=== PATIENT | female | born 2000 | race Caucasian/White ===

== ENCOUNTER 2018-06-17 12:31 | Emergency (ER) | payer MEDICAID, OTHER ==
--- NOTE | 2018-06-17 13:30 | Emergency Department Report ---
Blank Doc - Documentation Documentation: 17 yo female presents with left flank pain x 2 weeks with vomitting and diarrhea and urinary freq LMP 06/17/18 ua/upt labs reevaluate
[2018-06-17 14:02] LABS: Hematocrit 32.3 % (30.3-42.9); Hemoglobin 11.2 gm/dl (10.1-14.3); Mean Corpuscular HGB Conc 35 % (30-34); Mean Corpuscular Volume 87 fl (79-97); Platelet Count 398 K/mm3 (140-440); Red Blood Count 3.72 M/mm3 (3.65-5.03); Red Cell Distribution Width 14.2 % (13.2-15.2)
[2018-06-17 14:12] LABS: BUN/Creatinine Ratio 15; Blood Urea Nitrogen 12 mg/dL (7-17); Calcium 9.1 mg/dL (8.4-10.2); Hemolysis Index 9
[2018-06-17 14:26] LABS: Bilirubin,Urine NEG (Negative); Blood,Urine LG (Negative); Color,Urine Yellow (Yellow); Mucus,Urine FEW /HPF; Urobilinogen,Urine < 2.0 mg/dL (<2.0)
[2018-06-17 14:30] LABS: HCG Qualitative,Urine Negative (Negative)
[2018-06-17 14:38] LABS: Basophils % (Manual) 0 % (0.0-1.8); Eosinophils % (Manual) 0 % (0.0-4.3); Total Cells Counted 100
[2018-06-17 14:40] LABS: Anisocytosis 1+; Platelet Estimate Consistent w Auto
--- NOTE | 2018-06-17 15:10 | XRay Report ---
ROUTINE CHEST, TWO VIEWS: HISTORY: fever. The trachea, heart, mediastinal contour, lung alberts and bony thorax are unremarkable. IMPRESSION: Unremarkable chest x-ray.
[2018-06-17] MEDS ORDERED: NACL 0.9% 1000 ML IV ONE (16:41)
[2018-06-17] MEDS ORDERED: ZOSYN/NS 4.5GM/100ML 4.5 GM/100 ML VIAL IV ONE (16:41)
[2018-06-17] MEDS ORDERED: MAXIPIME/NS 1 GM/100 ML 1 GM/100 ML BAG IV ONE (16:47)
--- NOTE | 2018-06-17 16:51 | Emergency Department Report ---
ED Back Pain/Injury HPI - General Chief Complaint: Abdominal Pain Stated Complaint: STOMACH PAIN Time Seen by Provider: 06/17/18 13:27 Source: patient Limitations: No Limitations - History of Present Illness Initial Comments: 17-year-old female presents to ED with report of left flank pain 2 weeks. I reports associated fever, nausea, vomiting, diarrhea, urinary frequency. Cory abdullahi reports she is allergic to Tylenol and Aleve, reports facial swelling and throat swelling. Patient says she does not want anything for pain at this time. MD Complaint: back pain -: week(s) (2) Similar Symptoms Previously: No Radiation: none Severity: moderate Quality: sharp Consistency: intermittent Improves With: immobilization Worsens With: movement Context: unknown Associated Symptoms: fever/chills, nausea/vomiting, other (reports urinary symptoms). denies: abdominal pain - Related Data Previous Rx's Medication Instructions Recorded Last Taken Type Ciprofloxacin HCl [Cipro] 500 mg PO BID #20 tablet 06/17/18 Unknown Rx Ondansetron [Zofran Odt] 4 mg PO Q8HR PRN #20 tab.rapdis 06/17/18 Unknown Rx Allergies Allergy/AdvReac Type Severity Reaction Status Date / Time acetaminophen [From Tylenol] AdvReac Angioedema Verified 06/17/18 12:32 naproxen [From Aleve] AdvReac Angioedema Verified 06/17/18 12:33 ED Review of Systems ROS: Stated complaint: STOMACH PAIN Other details as noted in HPI Comment: All other systems reviewed and negative Constitutional: chills, fever Gastrointestinal: vomiting, diarrhea Genitourinary: frequency, hematuria ED Past Medical Hx - Past Medical History Previous Medical History?: No - Surgical History Past Surgical History?: No - Social History Smoking Status: Never Smoker Substance Use Type: Alcohol - Medications Home Medications: Home Medications Medication Instructions Recorded Confirmed Last Taken Type Ciprofloxacin HCl [Cipro] 500 mg PO BID #20 tablet 06/17/18 Unknown Rx Ondansetron [Zofran Odt] 4 mg PO Q8HR PRN #20 tab.rapdis 06/17/18 Unknown Rx ED Physical Exam - General Limitations: No Limitations General appearance: alert, in no apparent distress - Head Head exam: Present: atraumatic, normocephalic - Eye Eye exam: Present: normal appearance - ENT ENT exam: Present: mucous membranes moist - Neck Neck exam: Present: normal inspection - Respiratory Respiratory exam: Present: normal lung sounds bilaterally. Absent: respiratory distress - Cardiovascular Cardiovascular Exam: Present: normal rhythm, tachycardia - GI/Abdominal GI/Abdominal exam: Present: soft. Absent: distended, tenderness - Extremities Exam Extremities exam: Present: normal inspection - Back Exam Back exam: Present: CVA tenderness (L) - Neurological Exam Neurological exam: Present: alert, oriented X3 - Psychiatric Psychiatric exam: Present: normal affect, normal mood - Skin Skin exam: Present: warm, dry, intact, normal color ED Course Vital Signs 06/17/18 06/17/18 06/17/18 13:27 16:24 16:25 Temperature 103.1 F H 99.7 F H Pulse Rate 133 H 112 H Respiratory 18 20 20 Rate Blood Pressure 122/72 Blood Pressure 122/67 [Left] O2 Sat by Pulse 100 98 Oximetry 06/17/18 19:28 Temperature 99 F Pulse Rate 101 H Respiratory 15 Rate Blood Pressure Blood Pressure 108/56 [Left] O2 Sat by Pulse 100 Oximetry ED Medical Decision Making - Lab Data Result diagrams: 06/17/18 13:37 06/17/18 13:37 - Radiology Data Radiology results: report reviewed, image reviewed - Medical Decision Making 17-year-old, nontoxic-appearing female with pyelonephritis. Patient's febrile, tachycardic with elevated white count. However, lactic acid normal. Unable to medicate fever due to patient's allergy to Tylenol and Motrin. Zosyn was given here in the ED. CT is negative for any abnormalities including abscess. Signs improved following antibiotics and IV fluids. She currently tolerating by mouth. Lactic acid normal. Will discharge at this time, does not require admission. Will give prescription for Cipro and Zofran. A precautions given. Outpatient follow-up advised. - Differential Diagnosis UTI, kidney stone, pyelonephritis Critical care attestation.: If time is entered above; I have spent that time in minutes in the direct care of this critically ill patient, excluding procedure time. ED Disposition Clinical Impression: Pyelonephritis Disposition: DC-01 TO HOME OR SELFCARE Is pt being admited?: No Condition: Stable Instructions: Acute Pyelonephritis (ED) Prescriptions: Ciprofloxacin HCl [Cipro] 500 mg PO BID #20 tablet Ondansetron [Zofran Odt] 4 mg PO Q8HR PRN #20 tab.rapdis PRN Reason: Vomiting Referrals: MARIA CABRERA [Primary Care Provider] - 3-5 Days [facility] [Provider Group] - 3-5 Days Time of Disposition: 19:27
[2018-06-17] MEDS ORDERED: ZOFRAN ONE (17:50)
[2018-06-17] MEDS ORDERED: ZOFRAN IV ONE (17:57)
--- NOTE | 2018-06-17 18:45 | Cat Scan Report ---
FINAL REPORT PROCEDURE: CT ABDOMEN PELVIS W CON TECHNIQUE: Computerized axial tomography of the abdomen and pelvis was performed after the IV inject ion of iodinated nonionic contrast. HISTORY: L flank pain COMPARISON: No prior studies are available for comparison. FINDINGS: Visualized lower thorax: No significant abnormality. Liver: Normal size and attenuation. Spleen: Normal size and attenuation. Gallbladder and biliary system: Normal. Pancreas: Normal. Adrenals: Normal. Kidneys: Normal. GI tract: The appendix is visualized and does not appear inflamed. No bowel obstruction or inflammati on is seen Lymph nodes and mesentery: Normal. Vasculature: Normal. Bladder: Normal. Reproductive organs: Normal. Peritoneum: No free fluid. Musculoskeletal structures: No significant abnormality. Other: None. IMPRESSION: No acute abnormality is identified
[2018-06-17 19:29] VITALS: BP 108/56
== END 2018-06-17 19:47 | disposition home or self-care (01) ==
LOC: ED 12:31
DX: N12 Tubulo-interstitial nephritis, not specified as acute or chronic (principal)
CPT/HCPCS: 36415; 71046; 74177; 80048; 81001; 81025; 82140; 85007; 85025; 96365; 96366; 96375; 99284; J0692; J2405; J7030; Q9967